=== PATIENT | male | born 1990 | race Caucasian/White ===

== ENCOUNTER 2022-04-19 20:16 | Emergency (ER) | payer BC ==
[2022-04-19] MEDS: Acetaminophen 500 MG Tab PO ONE (20:44)
[2022-04-19 21:03] VITALS: BP 145/83; PULSE 104
[2022-04-19] MEDS: guaiFENesin/Dextromethorphan 100-10 MG/5 ML Soln 5 ML Cup PO ONE (21:23)
[2022-04-19] MEDS: Azithromycin 250 MG Tab PO ONE (21:25)
== END 2022-04-19 21:35 | disposition home or self-care (01) ==
LOC: CC.ED 20:16
DX: R50.9 Fever, unspecified (principal); R05.9 Cough, unspecified
CPT/HCPCS: 87635; 87804; 87807; 99283; 99284; A9270; U0002